=== PATIENT | female | born 1970 | race Caucasian/White ===

== ENCOUNTER 2023-05-30 07:04 | Day surgery (SDC) | payer OTHER ==
[~2023-05-30] VITALS: Ht 167.6 cm; Wt 52.2 kg
[2023-05-30 08:05] LABS: HCG,QUAL RESULT NEGATIVE (NEGATIVE)
[2023-05-30 08:29] VITALS: O2SAT 100
[2023-05-30] MEDS ORDERED: SIMETHICONE 40 MG/0.6 ML ML ONE (09:47)
[2023-05-30] MEDS ORDERED: MIDAZOLAM HCL 5 MG/5 ML VIAL ONE (09:48)
[2023-05-30] MEDS ORDERED: MEPERIDINE 100 MG INJ. 100 MG/ML VIAL ONE (09:48)
[2023-05-30 16:24] VITALS: BP_SYST 102; PULSE 76; RESP 18
== END 2023-05-30 11:52 | disposition home or self-care (01) ==
LOC: SDS 07:04
PROVIDERS: ATTEND Internal Medicine Gastroenterology
DX: Z12.11 Encounter for screening for malignant neoplasm of colon (principal); K64.8 Other hemorrhoids; E03.9 Hypothyroidism, unspecified; Z79.890 Hormone replacement therapy
CPT/HCPCS: 45378; 99152; 84703; G0378; J2250; J2175; 45385